=== PATIENT | female | born 1995 | race Caucasian/White ===

== ENCOUNTER 2017-01-03 09:46 | Inpatient (IN) | payer OTHER, MEDICAID ==
[~2017-01-03] VITALS: Ht 149.9 cm; Wt 38.0 kg
[~2017-01-03 09:46] MED LIST: DEXAMETHASONE SOD PHOS 4 MG/ML VIAL IVP ONE; FentaNYL CITRATE-PF 100 MCG/2 ML VIAL IVP ONE; KETOROLAC TROMETHAMINE 60 MG/2 ML VIAL IM ONE; LIDOCAINE HCL/PF 2% 5 ML VIAL IM ONE; MIDAZOLAM HCL 2 MG/2 ML VIAL IVP ONE; ONDANSETRON HCL 4 MG/2 ML VIAL IVP ONE; PROPOFOL 1% 20 ML VIAL IVP ONE; SUCCINYLCHOLINE CHLORIDE 20 MG/ML 10 ML VIAL IVP ONE
[2017-01-03 10:35] LABS: APPEARANCE,URINE CLEAR (CLEAR); GLUCOSE, URINE (UA) NEGATIVE (NEGATIVE); KETONES,URINE NEGATIVE (NEGATIVE); LEUKOCYTE ESTERASE ,URINE NEGATIVE (NEGATIVE); OCCULT BLOOD,URINE TRACE (NEGATIVE); PH,URINE 7.5 (5.0-8.0); PROTEIN,URINE NEGATIVE (NEGATIVE)
[2017-01-03 10:46] LABS: BASOPHILS % (AUTO) 0.5 % (0.0-2.0); EOSINOPHILS % (AUTO) 1.5 % (1.0-6.0); HEMATOCRIT 39.6 % (36-46); HEMOGLOBIN 13.3 g/dL (12.0-16.0); LYMPHOCYTES # (AUTO) 1.7 K/uL (1.0-4.8); LYMPHOCYTES % (AUTO) 11.4 % (22.0-44.0); MEAN CORPUSCULAR HEMOGLOBIN 30.2 pg (26.0-34.0); MEAN CORPUSCULAR HGB CONC 33.7 G/dL (31.0-37.0); MEAN CORPUSCULAR VOLUME 89 fL (80-100); MONOCYTES % (AUTO) 6.8 % (2.0-9.0); NEUTROPHILS # (AUTO) 11.6 K/uL (1.8-7.7); NEUTROPHILS % (AUTO) 79.8 % (40.0-70.0); PLATELET COUNT (AUTO) 228 K/uL (150-450); RED BLOOD CELL COUNT(AUTO) 4.42 MIL/uL (4.00-5.20); RED CELL DISTRIBUTION WIDTH 12.7 % (11.5-14.5); WHITE BLOOD COUNT (AUTO) 14.6 K/uL (4.5-11.0)
[2017-01-03 10:51] LABS: ANION GAP 9 mmol/L (8-16); CALCIUM, TOTAL 9.3 mg/dL (8.8-10.5); CARBON DIOXIDE 28 mmol/L (22-29); CHLORIDE 102 mmol/L (98-107); CREATININE 0.54 mg/dL (0.60-1.30); GLOMERULAR FILTR. RATE CALC > 60 mL/min (>60); POTASSIUM 3.9 mmol/L (3.5-5.1); SODIUM SERUM 139 mmol/L (136-145); UREA NITROGEN, BLOOD 9 mg/dL (7-18)
[2017-01-03 10:55] LABS: ADD UA MICROSCOPIC YES; RBC,URINE 0-2 /HPF (0-2); SQUAMOUS EPITHELIAL CELL,UR Moderate /LPF (None Seen); WBC,URINE None Seen /HPF (0-5)
[2017-01-03 11:03] LABS: ALANINE AMINOTRANSFERASE 18 U/L (12-78); ASPARTATE AMINOTRANSFERASE 18 U/L (15-37); BILIRUBIN,TOTAL 0.8 mg/dL (0.1-1.0); TOTAL PROTEIN, SERUM 7.1 g/dL (6.4-8.2)
[2017-01-03] MEDS ORDERED: BARIUM SULFATE 0.1% SUSPENSION 450 ML BOTTLE PO ONE (11:45)
[2017-01-03] MEDS ORDERED: SODIUM CHLORIDE 0.9% 1,000 ML IV ONE ×2 (11:45→19:11)
[2017-01-03] MEDS ORDERED: KETOROLAC TROMETHAMINE 30 MG/ML VIAL IVP ONE (11:45)
[2017-01-03] MEDS ORDERED: ONDANSETRON HCL 4 MG/2 ML VIAL IVP ONE (11:45)
[2017-01-03] MEDS ORDERED: SODIUM CHLORIDE 0.9% 100 ML ONE (13:29)
[2017-01-03] MEDS ORDERED: IOVERSOL 320 MG/ML 100 ML VIAL ONE (13:29)
[2017-01-03] MEDS ORDERED: MORPHINE SULFATE 2 MG/ML SYRINGE IVP PRN (15:00)
[2017-01-03] MEDS ORDERED: POTASSIUM CHLORIDE 20 MEQ ER TABLET PO PRN (15:00)
[2017-01-03] MEDS ORDERED: ACETAMINOPHEN 325 MG TABLET PO PRN (15:00)
[2017-01-03] MEDS ORDERED: POTASSIUM CHL 10 MEQ/WATER 50 ML IV PRN (15:00)
[2017-01-03] MEDS ORDERED: MAGNESIUM HYDROXIDE SUSPENSION 30 ML UDCUP PO PRN (15:00)
[2017-01-03] MEDS: DEXTROSE 5%-0.45% SODIUM CHL 1,000 ML IV SCH (15:34)
[2017-01-03 16:11] LABS: PROTHROMBIN TIME 10.8 SEC (9.4-11.6)
[2017-01-03 16:56] VITALS: BP 121/71
[2017-01-03] MEDS ORDERED: PIPERACILLIN/TAZO 3.375 GM/D5W 50 ML IV ONE (18:00)
[2017-01-03 19:11] VITALS: BP 119/71
[2017-01-03] MEDS ORDERED: BUPIVACAINE 0.25%/EPI 1:200,000/PF 10 ML VIAL ONE (19:11)
[2017-01-03] MEDS ORDERED: CefoTEtan DISOD 2 GM/DEXTROSE 50 ML IV ONE (19:23)
[2017-01-03] MEDS ORDERED: RINGERS SOLUTION,LACTATED 1,000 ML IV ONE ×2 (19:32→21:01)
[2017-01-03] MEDS: BUPIVACAINE 0.25%/EPI 1:200,000/PF 10 ML VIAL ONE ×2 (19:45→20:29)
[2017-01-03] MEDS ORDERED: OXYGEN THERAPY IH SCH (20:00)
[2017-01-03] MEDS ORDERED: MEPERIDINE-PF 25 MG/ML SYRINGE IVP PRN (20:00)
[2017-01-03] MEDS ORDERED: HYDROmorphone 2 MG/ML SYRINGE IVP PRN (20:00)
[2017-01-03] MEDS ORDERED: FentaNYL CITRATE-PF 100 MCG/2 ML VIAL IVP PRN (20:00)
[2017-01-03] MEDS: DOCUSATE SODIUM 100 MG CAPSULE PO SCH (21:00)
[2017-01-03 23:30] VITALS: BP 122/74
[2017-01-04] MEDS: ONDANSETRON HCL 4 MG/2 ML VIAL IVP PRN ×2 (04:32→08:47)
[2017-01-04 04:39] VITALS: BP 124/79
[2017-01-04 05:37] LABS: BASOPHILS % (AUTO) 0.1 % (0.0-2.0); EOSINOPHILS % (AUTO) 0 % (1.0-6.0); HEMOGLOBIN 13.5 g/dL (12.0-16.0); LYMPHOCYTES # (AUTO) 0.5 K/uL (1.0-4.8); LYMPHOCYTES % (AUTO) 3.1 % (22.0-44.0); MEAN CORPUSCULAR HEMOGLOBIN 30.6 pg (26.0-34.0); MEAN CORPUSCULAR HGB CONC 33.7 G/dL (31.0-37.0); MEAN CORPUSCULAR VOLUME 91 fL (80-100); MONOCYTES # (AUTO) 0.2 K/uL (0.1-1.0); MONOCYTES % (AUTO) 1.1 % (2.0-9.0); NEUTROPHILS # (AUTO) 14.7 K/uL (1.8-7.7); PLATELET COUNT (AUTO) 209 K/uL (150-450); RED BLOOD CELL COUNT(AUTO) 4.41 MIL/uL (4.00-5.20); RED CELL DISTRIBUTION WIDTH 12.8 % (11.5-14.5); WHITE BLOOD COUNT (AUTO) 15.4 K/uL (4.5-11.0)
[2017-01-04 05:46] LABS: ANION GAP 8 mmol/L (8-16); CALCIUM, TOTAL 9.1 mg/dL (8.8-10.5); CARBON DIOXIDE 26 mmol/L (22-29); CHLORIDE 101 mmol/L (98-107); GLOMERULAR FILTR. RATE CALC > 60 mL/min (>60); SODIUM SERUM 135 mmol/L (136-145); UREA NITROGEN, BLOOD 5 mg/dL (7-18)
[2017-01-04 06:46] LABS: NEUTROPHILS % (AUTO) 95.7 % (40.0-70.0)
[2017-01-04 07:35] VITALS: BP 102/64
[2017-01-04] MEDS: DOCUSATE SODIUM 100 MG CAPSULE PO SCH (08:15)
[2017-01-04] MEDS: DEXTROSE 5%-0.45% SODIUM CHL 1,000 ML IV SCH (08:43)
[2017-01-04] MEDS ORDERED: PANTOPRAZOLE SODIUM 40 MG/VIAL IVP SCH (09:00)
[2017-01-04] MEDS ORDERED: PIPERACILLIN/TAZO 3.375 GM/D5W 50 ML IV SCH (09:00)
[2017-01-04 11:12] VITALS: BP 114/75
[2017-01-04] MEDS ORDERED: HYDR-309 PO (14:08)
[2017-01-05 07:07] LABS: GC DNA N.A. AMPLIFY Negative (Negative)
== END 2017-01-04 14:45 | disposition home or self-care (01) | DRG 225 ==
LOC: EMS 09:49 → 6N 15:47
PROVIDERS: ADMIT Internal Medicine; ATTEND Internal Medicine
PROC: 0UB04ZZ Excision of Right Ovary, Percutaneous Endoscopic Approach (ICD-10-PCS; 2017-01-03)
PROC: 0DTJ4ZZ Resection of Appendix, Percutaneous Endoscopic Approach (ICD-10-PCS; principal; 2017-01-03 19:45)
DX: K35.3 Acute appendicitis with localized peritonitis (principal); N83.291 Other ovarian cyst, right side
CPT/HCPCS: 74177; 81025; 87081; 87491; 87591; 88304; 96361; 96374; 96375; 99285; C9113; J0330; J1100; J1885; J2250; J2405; J2543; J2704; J3010; J3490; J7030; J7050; J7120

== ENCOUNTER 2017-05-26 11:51 | Emergency (ER) | payer MEDICAID, OTHER ==
[~2017-05-26] VITALS: Ht 149.9 cm; Wt 37.0 kg
[~2017-05-26 11:51] MED LIST changes: -DEXAMETHASONE SOD PHOS 4 MG/ML VIAL IVP ONE; -FentaNYL CITRATE-PF 100 MCG/2 ML VIAL IVP ONE; +HYDR-309 PO; -KETOROLAC TROMETHAMINE 60 MG/2 ML VIAL IM ONE; -LIDOCAINE HCL/PF 2% 5 ML VIAL IM ONE; -MIDAZOLAM HCL 2 MG/2 ML VIAL IVP ONE; -ONDANSETRON HCL 4 MG/2 ML VIAL IVP ONE; -PROPOFOL 1% 20 ML VIAL IVP ONE; -SUCCINYLCHOLINE CHLORIDE 20 MG/ML 10 ML VIAL IVP ONE
[2017-05-26] MEDS ORDERED: PREN-155 PO (11:55)
[2017-05-26 13:43] LABS: BASOPHILS % (AUTO) 1.1 % (0.0-2.0); EOSINOPHILS % (AUTO) 2.26 % (1.0-6.0); HEMATOCRIT 40.3 % (36-46); HEMOGLOBIN 13.2 g/dL (12.0-16.0); LYMPHOCYTES # (AUTO) 1.6 K/uL (1.0-4.8); LYMPHOCYTES % (AUTO) 17.8 % (22.0-44.0); MEAN CORPUSCULAR HEMOGLOBIN 30.1 pg (26.0-34.0); MEAN CORPUSCULAR HGB CONC 32.8 G/dL (31.0-37.0); MEAN CORPUSCULAR VOLUME 92 fL (80-100); MONOCYTES # (AUTO) 0.7 K/uL (0.1-1.0); MONOCYTES % (AUTO) 7.3 % (2.0-9.0); NEUTROPHILS # (AUTO) 6.4 K/uL (1.8-7.7); NEUTROPHILS % (AUTO) 71.6 % (40.0-70.0); PLATELET COUNT (AUTO) 262 K/uL (150-450); RED BLOOD CELL COUNT(AUTO) 4.39 MIL/uL (4.00-5.20); RED CELL DISTRIBUTION WIDTH 12.8 % (11.5-14.5)
[2017-05-26 15:33] VITALS: BP 123/76
== END 2017-05-26 15:34 | disposition home or self-care (01) ==
LOC: EMS 11:52
DX: O20.0 Threatened abortion (principal); Z3A.01 Less than 8 weeks gestation of pregnancy
CPT/HCPCS: 76801; 76817; 86901; 99285